=== PATIENT | male | born 1965 | race Caucasian/White ===

== ENCOUNTER 2018-01-23 09:57 | Day surgery (SDC) | payer OTHER ==
[~2018-01-23] VITALS: Ht 180.3 cm; Wt 113.5 kg
[~2018-01-23 09:57] MED LIST: ALBU90OI6 INH; ALLO100 PO; ATOR40TA PO; CYCL10 PO; Colace100 MG PO; HYDACE25S PR; HYDCOR2.5C PR; HYDMOR2 PO; IBUP600 PO; INSULANPEN; LISI20 PO; Lantus100 UNIT/1; METF500C PO; METPRE4DP PO; NAPR500 PO; Neurontin 300300 MG PO; OXYACE5T PO; Percocet 5-3251 EACH PO; RXOXYACE PO; Robaxin500 MG PO; TIOT18 INH; TOBR.3OPSO OP; TRAM50 PO; ULTRA-LIGHT RO1 EACH MC
== END 2018-01-23 11:30 | disposition home or self-care (01) ==
LOC: ORSCSDS 09:57
PROVIDERS: Internal Medicine Gastroenterology
PROC: 0DBN8ZX Excision of Sigmoid Colon, Via Natural or Artificial Opening Endoscopic, Diagnostic (ICD-10-PCS; principal; 2018-01-23 11:45)
PROC: 0DBP8ZX Excision of Rectum, Via Natural or Artificial Opening Endoscopic, Diagnostic (ICD-10-PCS; principal; 2018-01-23 11:45)
DX: R19.7 Diarrhea, unspecified (principal); D12.5 Benign neoplasm of sigmoid colon; K62.1 Rectal polyp; K63.5 Polyp of colon; D37.4 Neoplasm of uncertain behavior of colon; I10 Essential (primary) hypertension; G47.33 Obstructive sleep apnea (adult) (pediatric); E78.5 Hyperlipidemia, unspecified; E11.9 Type 2 diabetes mellitus without complications; I48.91 Unspecified atrial fibrillation; J44.9 Chronic obstructive pulmonary disease, unspecified; E66.9 Obesity, unspecified; Z68.34 Body mass index [BMI] 34.0-34.9, adult; F17.210 Nicotine dependence, cigarettes, uncomplicated; Z79.4 Long term (current) use of insulin; Z79.899 Other long term (current) drug therapy
CPT/HCPCS: 82947; 88305; J7120

== ENCOUNTER 2019-01-18 15:11 | Emergency (ER) | payer OTHER ==
[~2019-01-18] VITALS: Ht 180.3 cm; Wt 102.1 kg
[2019-01-18 15:55] LABS: BASOPHILS ABSOLUTE AUTO 0.06 K/mm3 (0.00-0.23); BASOPHILS PERCENT AUTO 1 % (0-2); EOSINOPHILS ABSOLUTE AUTO 0.08 K/mm3 (0.00-0.68); EOSINOPHILS PERCENT AUTO 1 % (0-6); Hematocrit 44.9 % (37.0-53.0); Hemoglobin 14.8 g/dL (13.5-17.5); IMMATURE GRAN ABSOLUTE AUTO 0.03 K/mm3 (0.00-0.10); IMMATURE GRAN PERCENT AUTO 0 % (0-1); LYMPHOCYTES ABSOLUTE AUTO 2.39 K/mm3 (0.84-5.20); LYMPHOCYTES PERCENT AUTO 23 % (21-46); MONOCYTES ABSOLUTE AUTO 0.81 K/mm3 (0.16-1.47); MONOCYTES PERCENT AUTO 8 % (4-13); Mean Corpuscular HGB 32.2 pg (26.0-34.0); Mean Corpuscular Volume 98 fL (80-100); Mean Platelet Volume 11.7 fL (9.1-12.4); NEUTROPHILS ABSOLUTE AUTO 7.14 K/mm3 (1.96-9.15); NEUTROPHILS PERCENT AUTO 68 % (41-73); Platelet Count 217 K/mm3 (150-400); RDW Coefficient Variation 13.4 % (11.7-14.2); RDW Standard Deviation 48.5 fL (35.1-46.3); White Blood Cell Count 10.51 K/mm3 (4.00-11.30)
[2019-01-18 16:15] LABS: Alanine Aminotransfer (ALT/SGP 59 U/L (12-78); Albumin, Blood 4.2 g/dL (3.4-5.0); Albumin/Globulin Ratio 1.3 (0.8-1.8); Alk Phos 63 U/L (50-136); Anion Gap 9 mmol/L (6-16); Aspartate Aminotrans (AST/SGOT 47 U/L (12-37); Bilirubin, Total 0.4 mg/dL (0.1-1.0); Blood Urea Nitrogen 28 mg/dL (8-24); CO2, Blood 22 mmol/L (21-32); Calcium, Blood 9.6 mg/dL (8.5-10.1); Chloride, Blood 110 mmol/L (98-108); Creatinine, Blood 1.22 mg/dL (0.60-1.20); Globulin, Blood 3.2 g/dL (2.2-4.0); Glomerular Filtration Rate >60 (60-); Glucose, Blood 104 mg/dL (70-99); Potassium, Blood 4.7 mmol/L (3.5-5.5); Sodium, Blood 141 mmol/L (136-145); Total Protein, Blood 7.4 g/dL (6.4-8.2); Troponin I <0.015 ng/mL (0.000-0.040)
[2019-01-18] MEDS ORDERED: Lopressor 25 mg25 MG PO (17:47)
== END 2019-01-18 18:06 | disposition home or self-care (01) ==
LOC: ER 15:11
PROVIDERS: Physician Assistant
DX: I48.0 Paroxysmal atrial fibrillation (principal); F41.9 Anxiety disorder, unspecified; I10 Essential (primary) hypertension; E11.9 Type 2 diabetes mellitus without complications; F17.200 Nicotine dependence, unspecified, uncomplicated; Z79.899 Other long term (current) drug therapy; Z79.4 Long term (current) use of insulin
CPT/HCPCS: 36415; 80053; 84484; 85025; 93005; 93010; 99283-25

== ENCOUNTER 2023-06-07 08:44 | Day surgery (SDC) | payer OTHER ==
[~2023-06-07] VITALS: Ht 180.3 cm; Wt 123.0 kg
[~2023-06-07 08:44] MED LIST changes: +Lopressor 25 mg25 MG PO
[2023-06-07] MEDS ORDERED: XARELTO20 MG (09:12)
[2023-06-07 10:31] VITALS: BP 114/67
== END 2023-06-07 10:46 | disposition home or self-care (01) ==
LOC: ORSCSDS 08:44
PROVIDERS: Internal Medicine Gastroenterology
PROC: 0DBM8ZX Excision of Descending Colon, Via Natural or Artificial Opening Endoscopic, Diagnostic (ICD-10-PCS; principal; 2023-06-07 10:30)
DX: Z12.11 Encounter for screening for malignant neoplasm of colon (principal); Z86.010 Personal history of colon polyps; D12.4 Benign neoplasm of descending colon; K63.5 Polyp of colon; K64.8 Other hemorrhoids; K57.30 Diverticulosis of large intestine without perforation or abscess without bleeding; I48.91 Unspecified atrial fibrillation; E11.9 Type 2 diabetes mellitus without complications; G47.33 Obstructive sleep apnea (adult) (pediatric); I10 Essential (primary) hypertension; E78.00 Pure hypercholesterolemia, unspecified; Z87.891 Personal history of nicotine dependence; Z79.01 Long term (current) use of anticoagulants; Z79.4 Long term (current) use of insulin; Z79.84 Long term (current) use of oral hypoglycemic drugs; Z79.899 Other long term (current) drug therapy
CPT/HCPCS: 82947; 88305; J2704; J7120

== ENCOUNTER 2023-08-12 18:35 | Inpatient (IN) | payer OTHER ==
[~2023-08-12] VITALS: Ht 180.3 cm; Wt 122.5 kg
[~2023-08-12 18:35] MED LIST changes: -INSULANPEN; +INSULANPEN SC; +XARELTO20 MG PO
[2023-08-12 22:29] LABS: BASOPHILS ABSOLUTE AUTO 0.05 K/mm3 (0.00-0.23); BASOPHILS PERCENT AUTO 0 % (0-2); EOSINOPHILS ABSOLUTE AUTO 0.06 K/mm3 (0.00-0.68); EOSINOPHILS PERCENT AUTO 0 % (0-6); Hematocrit 43.7 % (37.0-53.0); Hemoglobin 14.8 g/dL (13.5-17.5); Mean Corpuscular HGB 32.2 pg (26.0-34.0); Mean Corpuscular HGB Conc 33.9 g/dL (31.5-36.5); Mean Corpuscular Volume 95 fL (80-100); Mean Platelet Volume 11.9 fL (9.1-12.4); Platelet Count 169 K/mm3 (150-400); RDW Coefficient Variation 14.1 % (11.7-14.2); RDW Standard Deviation 49.1 fL (35.1-46.3); Red Blood Cell Count 4.59 M/mm3 (4.30-5.90); White Blood Cell Count 19.85 K/mm3 (4.00-11.30)
[2023-08-12 22:31] LABS: IMMATURE GRAN ABSOLUTE AUTO 0.09 K/mm3 (0.00-0.10); IMMATURE GRAN PERCENT AUTO 1 % (0-1); LYMPHOCYTES ABSOLUTE AUTO 6.91 K/mm3 (0.84-5.20); LYMPHOCYTES PERCENT AUTO 35 % (21-46); MONOCYTES ABSOLUTE AUTO 1.46 K/mm3 (0.16-1.47); MONOCYTES PERCENT AUTO 7 % (4-13); NEUTROPHILS ABSOLUTE AUTO 11.28 K/mm3 (1.96-9.15); NEUTROPHILS PERCENT AUTO 57 % (41-73)
[2023-08-12 22:55] LABS: Albumin, Blood 3.3 g/dL (3.4-5.0); Albumin/Globulin Ratio 0.7 (0.8-1.8); Bilirubin, Total 0.5 mg/dL (0.1-1.0); Bun/Creatinine Ratio 18.7 (12.0-20.0); Calcium, Blood 9.8 mg/dL (8.5-10.1); Creatinine, Blood 1.87 mg/dL (0.60-1.20); Globulin, Blood 4.5 g/dL (2.2-4.0); Potassium, Blood 4.4 mmol/L (3.5-5.5); Total Protein, Blood 7.8 g/dL (6.4-8.2)
[2023-08-13 03:01] VITALS: BP 146/82
--- NOTE | 2023-08-13 03:21 | NUR ---
NURSE NOTE CLARIFIED FLUID ORDER WITH DR LION. 2 LITER BOLUS OF NS. FIRST BOLUS STARTED NOW. THEN LR AT 125HR FLUIDS CONTINUOUSLY.
--- NOTE | 2023-08-13 04:41 | NUR ---
SHIFT SUMMARY PATIENT IS ALERT AND ORIENTED. PATIENT HAS HAD NO ACUTE EVENT THIS SHIFT. VITAL SIGNS REVIEWED. PATIENT WAS ADMITTED FOR LLE CELLULITIS THIS SHIFT. PATIENT REPORTS PAIN IN LLE. PATIENT HAS FLUIDS INFUSING ORDERED. PATIENT IS IND THIS SHIFT. PATIENT HAS REPORTED NO NAUSEA, SOB OR VOMITTING THIS SHIFT. BED IN LOCKED AND LOWEST POSITION. CALL LIGHT IN SHIFT.
[2023-08-13 07:07] LABS: Bun/Creatinine Ratio 12.4 (12.0-20.0); Calcium, Blood 8.5 mg/dL (8.5-10.1); Creatinine, Blood 2.74 mg/dL (0.60-1.20)
[2023-08-13 07:27] VITALS: BP 137/81
[2023-08-13 08:37] LABS: Hematocrit 39.2 % (37.0-53.0); Mean Corpuscular HGB 31.8 pg (26.0-34.0); Mean Corpuscular HGB Conc 33.2 g/dL (31.5-36.5); Mean Corpuscular Volume 96 fL (80-100); Mean Platelet Volume 12.2 fL (9.1-12.4); Platelet Count 145 K/mm3 (150-400); RDW Standard Deviation 49.1 fL (35.1-46.3); Red Blood Cell Count 4.09 M/mm3 (4.30-5.90); White Blood Cell Count 17.92 K/mm3 (4.00-11.30)
[2023-08-13 09:44] LABS: BAND PERCENT MAN 1 % (0-8); BASOPHILS PERCENT MAN 0 % (0-2); EOSINOPHILS ABSOLUTE MAN 0.17 K/mm3 (0.00-0.68); EOSINOPHILS PERCENT MAN 1 % (0-6); LYMPHOCYTES ABSOLUTE MAN 5.55 K/mm3 (0.84-5.20); LYMPHOCYTES PERCENT MAN 31 % (21-46); MONOCYTES ABSOLUTE MAN 0.35 K/mm3 (0.16-1.47); MONOCYTES PERCENT MAN 2 % (4-13); NEUTROPHILS ABSOLUTE MAN 11.82 K/mm3 (1.96-9.15); SEG NEUTROPHILS PERCENT MAN 65 % (41-73); TOTAL CELLS COUNTED 100
[2023-08-13 16:42] VITALS: BP 144/88
--- NOTE | 2023-08-13 18:09 | NUR ---
SHIFT SUMMARY PT AxOx4. PLEASANT AND COOPERATIVE WITH CARE. PT REPORTED PAIN IN RLE/HIP FROM CHRONIC SCIATICA. MEDICATED PER EMAR x2 WITH REPORTED RELIEF. PT HAD NEPHROLOGY REFERRAL TODAY. FLUIDS CHANGED TO SODIUM BICARB IN DEXTROSE 5%. KIDNEY ULTRASOUND ORDERED. PER IMAGING, EXPECTED TO BE COMPLETED TOMORROW. PT HAD SHOWER TODAY. VOIDED INDEPENDENTLY, DOCUMENTED OUTPUT ACCORDINGLY. PT DECLINED PAIN TO LLE CELLULITIS, AND REPORTED THE COLOR TO BE "LESS BRIGHT RED" TODAY. PT IS CURRENTLY RESTING IN BED WITH CALL LIGHT IN REACH. DENIES ANY NEEDS AT THIS TIME.
[2023-08-13 20:28] VITALS: BP 120/71
[2023-08-14 04:27] VITALS: BP 142/79
--- NOTE | 2023-08-14 05:01 | NUR ---
SHIFT SUMMARY PATIENT IS ALERT AND ORIENTED. PATIENT HAS HAD NO ACUTE EVENTS THIS SHIFT. VITAL SIGNS REVIEWED. PATIENT HAS BEEN IND THIS SHIFT. PATIENT IS INFORMED OF STRICT I/O FOR KIDNEY FUNCTION. PATIENT HAS COMPLAINED OF PAIN, AND MEDICATED PER EMAR. PATIENT HAS NOT COMPLAINED OF SOB, NAUSEA, OR VOMITTING THIS SHIFT. BED IN LOCKED AND LOWEST POSITION. CALL LIGHT IN PLACE. FLUIDS INFUSING ORDERED.
[2023-08-14 05:09] LABS: Hematocrit 35.5 % (37.0-53.0); Mean Corpuscular HGB Conc 33.8 g/dL (31.5-36.5); Mean Corpuscular Volume 95 fL (80-100); Platelet Count 159 K/mm3 (150-400); RDW Coefficient Variation 13.9 % (11.7-14.2); RDW Standard Deviation 48.1 fL (35.1-46.3); Red Blood Cell Count 3.75 M/mm3 (4.30-5.90); White Blood Cell Count 14.43 K/mm3 (4.00-11.30)
[2023-08-14 05:36] LABS: Albumin, Blood 2.7 g/dL (3.4-5.0); Anion Gap 3 mmol/L (6-16); Blood Urea Nitrogen 22 mg/dL (8-24); Bun/Creatinine Ratio 19.5 (12.0-20.0); CO2, Blood 30 mmol/L (21-32); Calcium, Blood 8.9 mg/dL (8.5-10.1); Chloride, Blood 108 mmol/L (98-108); Creatinine, Blood 1.13 mg/dL (0.60-1.20); Glomerular Filtration Rate 75 (60-); Glucose, Blood 232 mg/dL (70-99); Magnesium, Blood 1.9 mg/dL (1.6-2.4); Phosphorus, Blood 2.7 mg/dL (2.5-4.9); Sodium, Blood 141 mmol/L (136-145)
[2023-08-14 05:49] LABS: BAND PERCENT MAN 14 % (0-8); BASOPHILS PERCENT MAN 0 % (0-2); EOSINOPHILS ABSOLUTE MAN 0.43 K/mm3 (0.00-0.68); EOSINOPHILS PERCENT MAN 3 % (0-6); LYMPHOCYTES % ATYPICAL MANUAL 1 % (0-0); LYMPHOCYTES ABSOLUTE MAN 4.18 K/mm3 (0.84-5.20); LYMPHOCYTES PERCENT MAN 28 % (21-46); MONOCYTES ABSOLUTE MAN 1.44 K/mm3 (0.16-1.47); MONOCYTES PERCENT MAN 10 % (4-13); MYELOCYTE ABSOLUTE MAN 0.43 K/mm3 (0.00-0.00); MYELOCYTE PERCENT MAN 3 % (0-0); NEUTROPHILS ABSOLUTE MAN 7.93 K/mm3 (1.96-9.15); SEG NEUTROPHILS PERCENT MAN 41 % (41-73); TOTAL CELLS COUNTED 100
[2023-08-14 07:28] VITALS: BP 145/86
[2023-08-14 15:32] VITALS: BP 124/66
--- NOTE | 2023-08-14 18:11 | NUR ---
SHIFT SUMMARY A7oX4, COOPERATIVE WITH CARE, PLEASANT. DENIED ANY CP/PRESSURE, HEADACHE, DIZZINESS OR SOB. COMPLAINED OF 10/10 PAIN TO R SCIATIC AND LLE CELLULITIS, TREATED WITH FENTANYL Q4, TYLENOL, AND ULTRAM PER EMAR. RENAL US COMPLETED TODAY - UNREMARKABLE. NS RUNNING AT 75 CURRENTLY. 24 HR URINE STARTED AT 0715 THIS AM. NO ACUTE EVENTS THIS SHIFT. PATIENT'S FAMILY CURRENTLY AT BEDSIDE.
[2023-08-14 19:22] VITALS: BP 130/78
[2023-08-15 02:23] VITALS: BP 142/86
--- NOTE | 2023-08-15 04:42 | NUR ---
SHIFT SUMMARY: PT IS ADMITTED FOR SEPSIS AND IS A FULL CODE. IS ALERT AND ABLE TO MAKE NEEDS KNOWN. IS UP AD-AARON TO 1P DEPENDING ON HOW HE FEELS. HAVE BEEN GIVEN PRN PAIN X2 THIS SHIFT. IV TO RIGHT AC IS PATENT AND RUNNING NS AT 75.
[2023-08-15 05:07] LABS: Hematocrit 36.7 % (37.0-53.0); Hemoglobin 12.2 g/dL (13.5-17.5); Mean Corpuscular HGB 31.7 pg (26.0-34.0); Mean Corpuscular HGB Conc 33.2 g/dL (31.5-36.5); Mean Corpuscular Volume 95 fL (80-100); Mean Platelet Volume 11.6 fL (9.1-12.4); Platelet Count 180 K/mm3 (150-400); RDW Coefficient Variation 13.9 % (11.7-14.2); RDW Standard Deviation 48.3 fL (35.1-46.3); Red Blood Cell Count 3.85 M/mm3 (4.30-5.90); White Blood Cell Count 16.44 K/mm3 (4.00-11.30)
[2023-08-15 05:34] LABS: Albumin, Blood 2.7 g/dL (3.4-5.0); Anion Gap 5 mmol/L (6-16); Blood Urea Nitrogen 18 mg/dL (8-24); Bun/Creatinine Ratio 17.5 (12.0-20.0); CO2, Blood 28 mmol/L (21-32); Calcium, Blood 9.3 mg/dL (8.5-10.1); Chloride, Blood 106 mmol/L (98-108); Creatinine, Blood 1.03 mg/dL (0.60-1.20); Glomerular Filtration Rate 84 (60-); Glucose, Blood 158 mg/dL (70-99); Magnesium, Blood 1.7 mg/dL (1.6-2.4); Sodium, Blood 139 mmol/L (136-145)
[2023-08-15 06:01] LABS: BASOPHILS PERCENT MAN 0 % (0-2); EOSINOPHILS PERCENT MAN 0 % (0-6); LYMPHOCYTES ABSOLUTE MAN 8.38 K/mm3 (0.84-5.20); LYMPHOCYTES PERCENT MAN 51 % (21-46); MONOCYTES ABSOLUTE MAN 0.82 K/mm3 (0.16-1.47); MONOCYTES PERCENT MAN 5 % (4-13); NEUTROPHILS ABSOLUTE MAN 7.23 K/mm3 (1.96-9.15); SEG NEUTROPHILS PERCENT MAN 44 % (41-73); TOTAL CELLS COUNTED 100
[2023-08-15 07:06] VITALS: BP 145/84
[2023-08-15 08:22] LABS: Protein, Urine Quantitative 42.3 mg/dL (0.0-11.9)
[2023-08-15 15:08] VITALS: BP 144/80
--- NOTE | 2023-08-15 17:09 | NUR ---
PATIENT A/OX4, INDEPENDENT AT BASELINE BUT UNABLE TO GET OOB THIS SHIFT DUE TO PAIN. REPORTS "SCIATICA." PAIN MEDICATION CHANGED TO IV DILAUDID AND FLEXERIL ADDED WITH SOME RELIEF. CONTINUES ON FLUIDS AND ABX. PATIENT PLEASANT AND COOPERATIVE WITH CARE AND ABLE TO MAKE NEEDS KNOWN. AT BEDSIDE THIS EVENING.
[2023-08-15 20:09] VITALS: BP 154/85
[2023-08-16 02:49] VITALS: BP 136/87
--- NOTE | 2023-08-16 05:34 | NUR ---
SUMMARY: PT A/OX4, IS INDEPENDENT IN ROOM AND CALLS APPROPRIATELY TO SPECIFY NEEDS. IV ABX RECIEVED T/O NOCTE FOR LLE CELLULITIS. LEG CONT'S TO BE RED, FIRM AND SWOLLEN FROM KNEE DOWN AND INTACT BLISTERS ARE NOTED TO POSTERIOR CALF. EDEMA AND REDNESS APPEAR TO BE RECEEDING FROM DEMARCATED REGION AND HE DENIED PAIN TO LLE T/O NOCTE. HE'S CONT'D TO EXPERIENCE SIGNIFICANT SCIATICA AND BACK PAIN THOUGH. PRN FLEXERIL AND IV DILAUDID PROVIDED REGULARLY PER EMAR AND KPAD REMAINS IN PLACE FOR BETTER RELIEF. HE'D PREVIOUSLY REPORTED PAIN TO SUSTAIN 10/10 BUT EVENTUALLY SLEPT WELL W/PAIN CONTROL IMPROVED TO 3/10. NO ACUTE CHANGES, VSS/AFEBRILE. WCTM AND REPORT TO DAY RN.
[2023-08-16 06:52] LABS: Albumin, Blood 2.7 g/dL (3.4-5.0); Anion Gap 8 mmol/L (6-16); Blood Urea Nitrogen 16 mg/dL (8-24); Bun/Creatinine Ratio 15.5 (12.0-20.0); CO2, Blood 25 mmol/L (21-32); Calcium, Blood 9.6 mg/dL (8.5-10.1); Chloride, Blood 106 mmol/L (98-108); Creatinine, Blood 1.03 mg/dL (0.60-1.20); Glomerular Filtration Rate 84 (60-); Glucose, Blood 149 mg/dL (70-99); Magnesium, Blood 1.8 mg/dL (1.6-2.4); Phosphorus, Blood 3.7 mg/dL (2.5-4.9); Potassium, Blood 4.2 mmol/L (3.5-5.5); Sodium, Blood 139 mmol/L (136-145)
[2023-08-16 07:14] LABS: Hemoglobin 12.8 g/dL (13.5-17.5)
[2023-08-16 07:58] VITALS: BP 138/89
[2023-08-16 08:44] LABS: Hematocrit 38.1 % (37.0-53.0); Hemoglobin 12.9 g/dL (13.5-17.5); Mean Corpuscular HGB 32.2 pg (26.0-34.0); Mean Corpuscular HGB Conc 33.9 g/dL (31.5-36.5); Mean Corpuscular Volume 95 fL (80-100); Mean Platelet Volume 11.8 fL (9.1-12.4); Platelet Count 209 K/mm3 (150-400); RDW Coefficient Variation 13.8 % (11.7-14.2); RDW Standard Deviation 47.9 fL (35.1-46.3); Red Blood Cell Count 4.01 M/mm3 (4.30-5.90); White Blood Cell Count 18.42 K/mm3 (4.00-11.30)
[2023-08-16 10:03] LABS: BAND PERCENT MAN 3 % (0-8); BASOPHILS PERCENT MAN 0 % (0-2); EOSINOPHILS PERCENT MAN 0 % (0-6); LYMPHOCYTES % ATYPICAL MANUAL 1 % (0-0); LYMPHOCYTES ABSOLUTE MAN 6.99 K/mm3 (0.84-5.20); LYMPHOCYTES PERCENT MAN 37 % (21-46); METAMYELOCYTE ABSOLUTE MAN 0.18 K/mm3 (0.00-0.00); METAMYELOCYTE PERCENT MAN 1 % (0-0); MONOCYTES ABSOLUTE MAN 0.55 K/mm3 (0.16-1.47); MONOCYTES PERCENT MAN 3 % (4-13); MYELOCYTE ABSOLUTE MAN 0.18 K/mm3 (0.00-0.00); MYELOCYTE PERCENT MAN 1 % (0-0); NEUTROPHILS ABSOLUTE MAN 10.49 K/mm3 (1.96-9.15); SEG NEUTROPHILS PERCENT MAN 54 % (41-73); TOTAL CELLS COUNTED 100
[2023-08-16 16:15] VITALS: BP 143/90
--- NOTE | 2023-08-16 17:30 | NUR ---
PATIENT A/OX4, PLEASANT AND COOPERATIVE WITH CARE THIS SHIFT. CONTINUES TO HAVE SEVERE BACK PAIN MAKING HIM UNABLE TO GET OOB. WHEN PHYSICAL THERAPY WAS SUGGESTED, PATIENT WAS ADAMENT THAT HE DID NOT WANT THAT. MEDICATING WITH DILAUDID, FLEXERIL AND TYLENOL. REDNESS TO L FOOT RECEEDING FROM ORIGINAL TRACING. CT OF L FOOT DONE TODAY. 20IV TO RAC WNL AND SL BETWEEN ABX. NO ACUTE CHANGES THIS SHIFT.
[2023-08-16 20:19] VITALS: BP 138/84
[2023-08-17 04:44] VITALS: BP 134/80
[2023-08-17 05:26] LABS: Hematocrit 37.8 % (37.0-53.0); Hemoglobin 12.8 g/dL (13.5-17.5); Mean Corpuscular HGB 32.4 pg (26.0-34.0); Mean Corpuscular HGB Conc 33.9 g/dL (31.5-36.5); Mean Corpuscular Volume 96 fL (80-100); Mean Platelet Volume 11.3 fL (9.1-12.4); Platelet Count 237 K/mm3 (150-400); RDW Coefficient Variation 13.7 % (11.7-14.2); RDW Standard Deviation 47.8 fL (35.1-46.3); Red Blood Cell Count 3.95 M/mm3 (4.30-5.90); White Blood Cell Count 18.23 K/mm3 (4.00-11.30)
--- NOTE | 2023-08-17 05:48 | NUR ---
SHIFT SUMMARY PT LAYING IN BED DURING BEDSIDE ROUNDS- AT BEDSIDE-PT REQUESTED FLEXERIL WITH HS MEDS- MEDICATED PT X 2 FOR LEFT BACK AND LEG PAIN- PT REPORTED BEING ABLE TO GET MORE SLEEP WITH THE PAIN RELIEF- BED LOW POSITION, CALL LIGHT WITHIN REACH
[2023-08-17 06:04] LABS: Albumin, Blood 2.6 g/dL (3.4-5.0); Anion Gap 9 mmol/L (6-16); Blood Urea Nitrogen 21 mg/dL (8-24); Bun/Creatinine Ratio 19.8 (12.0-20.0); CO2, Blood 26 mmol/L (21-32); Calcium, Blood 9.5 mg/dL (8.5-10.1); Chloride, Blood 102 mmol/L (98-108); Creatinine, Blood 1.06 mg/dL (0.60-1.20); Glomerular Filtration Rate 81 (60-); Glucose, Blood 167 mg/dL (70-99); Phosphorus, Blood 3.4 mg/dL (2.5-4.9); Potassium, Blood 4.3 mmol/L (3.5-5.5); Sodium, Blood 137 mmol/L (136-145)
[2023-08-17 06:34] LABS: BASOPHILS PERCENT MAN 0 % (0-2); EOSINOPHILS PERCENT MAN 0 % (0-6); LYMPHOCYTES ABSOLUTE MAN 7.29 K/mm3 (0.84-5.20); LYMPHOCYTES PERCENT MAN 40 % (21-46); MONOCYTES ABSOLUTE MAN 1.64 K/mm3 (0.16-1.47); MONOCYTES PERCENT MAN 9 % (4-13); MYELOCYTE ABSOLUTE MAN 0.18 K/mm3 (0.00-0.00); MYELOCYTE PERCENT MAN 1 % (0-0); NEUTROPHILS ABSOLUTE MAN 9.11 K/mm3 (1.96-9.15); SEG NEUTROPHILS PERCENT MAN 50 % (41-73); TOTAL CELLS COUNTED 100
[2023-08-17 07:04] VITALS: BP 148/87
[2023-08-17 15:19] VITALS: BP 139/85
--- NOTE | 2023-08-17 17:21 | NUR ---
SHIFT SUMMARY PT AOX4, UNABLE TO GET OUT OF BED THIS SHIFT. ATTEMPTED BUT THE PT WAS IN TOO MUCH PAIN EVEN AFTER BEING MEDICATED. MEDICATED FOR PAIN PER THE EMAR. ICE AND HEATING PAD PROVIDED TO THE PT. PROVIDER APPROVED THE PT TO USE A TENS UNIT AND THE PT'S FAMILY IS GOING TO BRING ONE IN. APPETITE LOW BUT PT ATTEMPTING TO EAT. PT'S AT THE BS ALL SHIFT. CALL LIGHT WITHIN REACH, BED IN THE LOWEST POSITION. WILL REPORT TO ONCOMING NURSE.
--- NOTE | 2023-08-17 19:00 | NUR ---
RECEIVED REPORT FROM SHARI RN. WILL PROVIDE CARE T/O SHIFT. CALL LT IN REACH.
--- NOTE | 2023-08-17 19:32 | NUR ---
MEDICATED WITH 1 MG IV DILAUDID FOR 9/10 BACK PAIN. PT REPORTS THE PAIN MED BRINGS HIS PAIN LEVEL DOWN TO A 2/3. NO OTHER NEEDS. CALL LT IN REACH.
[2023-08-17 21:42] VITALS: BP 142/88
--- NOTE | 2023-08-17 22:03 | NUR ---
PT RESTING COMFORTABLY, LYING ON BACK. SNORING LIGHTLY. RESP EVEN AND UNLABORED. IVF INFUSING. CALL LT IN REACH.
--- NOTE | 2023-08-18 00:22 | NUR ---
PT STATES PAIN LEVEL IS COMING DOWN. CALL LT IN REACH.
--- NOTE | 2023-08-18 02:08 | NUR ---
PT RESTING QUIETLY. ABX INFUSING. CALL LT IN REACH.
--- NOTE | 2023-08-18 04:17 | NUR ---
MEDICATED PT FOR 8/10 BACK PAIN WITH 1 MG IV DILAUDID. PT RESTING. IVF INFUSING. NO OTHER NEEDS. CALL LT IN REACH.
--- NOTE | 2023-08-18 04:37 | NUR ---
PT RESTING, SNORING AFTER PAIN MEDICATION GIVEN. CALL LT IN REACH.
--- NOTE | 2023-08-18 04:39 | NUR ---
SHIFT SUMMARY: PT CONTINUES TO HAVE PAIN, STIFFNESS, IN BACK. MEDICATED PT FOR BACK PAIN WITH 1 MG IV DILAUDID X 3. FLEXERIL GIVEN X 1. USES URINAL AT BEDSIDE. ON RA. SCHEDULED ABX'S GIVEN. NO ACUTE CHANGES. WILL CONTINUE TO PROVIDE CARE UNTIL SHIFT REPORT.
[2023-08-18 04:42] VITALS: BP 138/89
[2023-08-18 04:50] LABS: Hematocrit 39.7 % (37.0-53.0); Hemoglobin 13.2 g/dL (13.5-17.5); Mean Corpuscular HGB 31.4 pg (26.0-34.0); Mean Corpuscular HGB Conc 33.2 g/dL (31.5-36.5); Mean Corpuscular Volume 94 fL (80-100); Platelet Count 259 K/mm3 (150-400); RDW Coefficient Variation 13.7 % (11.7-14.2); RDW Standard Deviation 47.7 fL (35.1-46.3); Red Blood Cell Count 4.21 M/mm3 (4.30-5.90); White Blood Cell Count 18.94 K/mm3 (4.00-11.30)
[2023-08-18 05:20] LABS: Albumin, Blood 2.5 g/dL (3.4-5.0); Anion Gap 8 mmol/L (6-16); Blood Urea Nitrogen 21 mg/dL (8-24); Bun/Creatinine Ratio 19.1 (12.0-20.0); CO2, Blood 25 mmol/L (21-32); Calcium, Blood 9.8 mg/dL (8.5-10.1); Chloride, Blood 104 mmol/L (98-108); Glomerular Filtration Rate 78 (60-); Glucose, Blood 147 mg/dL (70-99); Magnesium, Blood 1.8 mg/dL (1.6-2.4); Phosphorus, Blood 3.5 mg/dL (2.5-4.9); Potassium, Blood 4.5 mmol/L (3.5-5.5); Sodium, Blood 137 mmol/L (136-145)
[2023-08-18 06:41] LABS: BASOPHILS PERCENT MAN 0 % (0-2); EOSINOPHILS PERCENT MAN 0 % (0-6); LYMPHOCYTES ABSOLUTE MAN 7.38 K/mm3 (0.84-5.20); LYMPHOCYTES PERCENT MAN 39 % (21-46); MONOCYTES ABSOLUTE MAN 0.94 K/mm3 (0.16-1.47); MONOCYTES PERCENT MAN 5 % (4-13); MYELOCYTE ABSOLUTE MAN 0.37 K/mm3 (0.00-0.00); MYELOCYTE PERCENT MAN 2 % (0-0); NEUTROPHILS ABSOLUTE MAN 10.22 K/mm3 (1.96-9.15); SEG NEUTROPHILS PERCENT MAN 54 % (41-73); TOTAL CELLS COUNTED 100
[2023-08-18 07:33] VITALS: BP 147/90
[2023-08-18 15:31] VITALS: BP 166/97
--- NOTE | 2023-08-18 18:26 | NUR ---
SHIFT SUMMARY A&O X 4, VSS. IS PLEASANT & COOPERATIVE WITH ALL CARE. USES URINAL INDEPENDENTLY FROM BED. WENT FOR BACK/SPINAL MRI HIS AFTERNOON. REPORT ON CHART. MEDICATED FOR C/O BACK PAIN PER EMAR WITH GOOD RELIEF STATED BY PT. APPETITE GOOD. AT BEDSIDE THROUGHOUT SHIFT. BED IN LOW POSITION, CALL LIGHT WITHIN REACH.
[2023-08-18 19:58] VITALS: BP 154/86
--- NOTE | 2023-08-19 04:51 | NUR ---
NO REAL CHANGE IN PT CONDTION RELATIVLY QUIET NIGHT WITH C/O PAIN TO RIGHT SIATIC NERVE, PT WAS MEDICATED EVERY 4 HOURS AND OFFERED COLD COMPRESS BUT PT DENIED. WILL CONT TO MONITOR
[2023-08-19 05:08] VITALS: BP 138/94
[2023-08-19 07:06] VITALS: BP 146/88
[2023-08-19 09:24] LABS: Hematocrit 40.2 % (37.0-53.0); Hemoglobin 13.3 g/dL (13.5-17.5); Mean Corpuscular HGB 31.7 pg (26.0-34.0); Mean Corpuscular HGB Conc 33.1 g/dL (31.5-36.5); Mean Corpuscular Volume 96 fL (80-100); Mean Platelet Volume 10.9 fL (9.1-12.4); Platelet Count 277 K/mm3 (150-400); RDW Coefficient Variation 13.8 % (11.7-14.2); RDW Standard Deviation 49.1 fL (35.1-46.3); Red Blood Cell Count 4.19 M/mm3 (4.30-5.90); White Blood Cell Count 18.89 K/mm3 (4.00-11.30)
[2023-08-19 09:52] LABS: BAND PERCENT MAN 5 % (0-8); BASOPHILS PERCENT MAN 0 % (0-2); EOSINOPHILS PERCENT MAN 0 % (0-6); LYMPHOCYTES % ATYPICAL MANUAL 1 % (0-0); LYMPHOCYTES ABSOLUTE MAN 9.06 K/mm3 (0.84-5.20); LYMPHOCYTES PERCENT MAN 47 % (21-46); MONOCYTES ABSOLUTE MAN 0.94 K/mm3 (0.16-1.47); MONOCYTES PERCENT MAN 5 % (4-13); MYELOCYTE ABSOLUTE MAN 0.18 K/mm3 (0.00-0.00); MYELOCYTE PERCENT MAN 1 % (0-0); NEUTROPHILS ABSOLUTE MAN 8.68 K/mm3 (1.96-9.15); SEG NEUTROPHILS PERCENT MAN 41 % (41-73); TOTAL CELLS COUNTED 100
[2023-08-19 09:58] LABS: Albumin, Blood 2.4 g/dL (3.4-5.0); Anion Gap 7 mmol/L (6-16); Blood Urea Nitrogen 22 mg/dL (8-24); Bun/Creatinine Ratio 21.6 (12.0-20.0); CO2, Blood 27 mmol/L (21-32); Calcium, Blood 9.5 mg/dL (8.5-10.1); Chloride, Blood 105 mmol/L (98-108); Creatinine, Blood 1.02 mg/dL (0.60-1.20); Glomerular Filtration Rate 85 (60-); Glucose, Blood 155 mg/dL (70-99); Magnesium, Blood 1.8 mg/dL (1.6-2.4); Phosphorus, Blood 3.4 mg/dL (2.5-4.9); Potassium, Blood 4.3 mmol/L (3.5-5.5); Sodium, Blood 139 mmol/L (136-145)
--- NOTE | 2023-08-19 18:21 | NUR ---
SHIFT SUMMARY A&O X 4, VSS. MEDICATED FOR C/O BACK PAIN PER EMAR WITH GOOD RELIEF STATED BY PT. CHANGED IV PAIN MEDS TO PO TO PREPARE PT FOR POSSIBLE DC TOMORROW. USES URINAL INDEPENDENTLY FROM BED. IS ABLE TO REPOSITION SELF FOR COMFORT. APPETITE IS MARGINAL. BED IN LOW POSITION, CALL LIGHT WITHIN REACH.
[2023-08-19 19:46] VITALS: BP 188/101
--- NOTE | 2023-08-19 21:17 | NUR ---
NOTE BILLING CUSTOMER SERVICE REPRESENTATIVE NOTIFIED ME OF BP 188/101 WHICH IS ABOVE THIS PATIENT'S BASELINE. PT BELIEVES IT IS ELEVATED D/T PAIN. I CALLED THE HOSPITALIST (DR. MISHRA) AND RELAYED THE INCREASED B/P TO HIM. MY ORDERS WERE TO ADMINISTER HIS DILAUDED EARLY AND REASSESS.
[2023-08-20 04:37] VITALS: BP 166/95
--- NOTE | 2023-08-20 04:53 | NUR ---
SHIFT SUMMARY *IMMANUEL* IS ALERT AND FULLY ORIENTED AT THE TIME OF ASSESSMENT. HE IS PLEASANT AND COOPERATIVE. PT C/O SEVERE PAIN TO RIGHT SCIATIC, MEDICATED PER EMAR WITH A THERAPEUTIC DROP IN PAIN RATING. FIRST VITAL SET OF THE SHIFT PT HAD BP OF 188/101, PT DENIES C/P AND SOB, PT BELIEVES B/P WAS ELEVATED D/T PAIN. I CALLED HOSPITALIST (DR. MISHRA) AND NOTIFIED HIM, MY ORDERS WERE TO ADMINISTER HIS SCHEDULED DILAUDED EARLY AND REASSESS. SUBSEQUENT B/P WAS 161/83, I ALSO REPORTED THIS TO DR. MISHRA, NO ORDERS RECIEVED. PT'S GOAL TONIGHT WAS TO STAY ON TOP OF PAIN MANAGEMENT SO THAT HE COULD START HIS DAY WITH LOW ENOUGH PAIN TO GET SOME OF HIS MORNING ACTIVITIES OUT OF THE WAY COMFORTABLY (TOILETING ETC) NO ACUTE EVENTS TONIGHT, PT RESTING IN BED IN A LOW POSITION WITH CALL LIGHT IN REACH.
[2023-08-20 05:42] LABS: Hemoglobin 12.7 g/dL (13.5-17.5); Mean Corpuscular HGB 31.4 pg (26.0-34.0); Mean Corpuscular HGB Conc 32.6 g/dL (31.5-36.5); Mean Corpuscular Volume 96 fL (80-100); Mean Platelet Volume 10.9 fL (9.1-12.4); Platelet Count 299 K/mm3 (150-400); RDW Coefficient Variation 13.6 % (11.7-14.2); RDW Standard Deviation 48.3 fL (35.1-46.3); Red Blood Cell Count 4.05 M/mm3 (4.30-5.90); White Blood Cell Count 16.75 K/mm3 (4.00-11.30)
[2023-08-20 06:26] LABS: Albumin, Blood 2.5 g/dL (3.4-5.0); Anion Gap 6 mmol/L (6-16); Blood Urea Nitrogen 25 mg/dL (8-24); Bun/Creatinine Ratio 23.4 (12.0-20.0); CO2, Blood 28 mmol/L (21-32); Calcium, Blood 9.6 mg/dL (8.5-10.1); Chloride, Blood 105 mmol/L (98-108); Creatinine, Blood 1.07 mg/dL (0.60-1.20); Glomerular Filtration Rate 80 (60-); Glucose, Blood 162 mg/dL (70-99); Magnesium, Blood 1.8 mg/dL (1.6-2.4); Phosphorus, Blood 3.6 mg/dL (2.5-4.9); Potassium, Blood 4.4 mmol/L (3.5-5.5); Sodium, Blood 139 mmol/L (136-145)
[2023-08-20 06:27] LABS: BAND PERCENT MAN 1 % (0-8); BASOPHILS PERCENT MAN 0 % (0-2); EOSINOPHILS PERCENT MAN 0 % (0-6); LYMPHOCYTES ABSOLUTE MAN 7.03 K/mm3 (0.84-5.20); LYMPHOCYTES PERCENT MAN 42 % (21-46); METAMYELOCYTE ABSOLUTE MAN 0.16 K/mm3 (0.00-0.00); METAMYELOCYTE PERCENT MAN 1 % (0-0); MONOCYTES ABSOLUTE MAN 2.17 K/mm3 (0.16-1.47); MONOCYTES PERCENT MAN 13 % (4-13); NEUTROPHILS ABSOLUTE MAN 7.37 K/mm3 (1.96-9.15); SEG NEUTROPHILS PERCENT MAN 43 % (41-73); TOTAL CELLS COUNTED 100
[2023-08-20 07:30] VITALS: BP 158/87
--- NOTE | 2023-08-20 11:00 | NUR ---
File Keeper called back into room, states pt seeing kitten in vent. Pt states still sees it. Dr. Gaffney at bedside. Dr. White made aware. Will continue to monitor.
[2023-08-20] MEDS ORDERED: ACET325 PO (12:34)
[2023-08-20] MEDS ORDERED: Cyclobenzaprine5 MG PO (12:34)
[2023-08-20] MEDS ORDERED: LEVFLO500 PO (12:35)
[2023-08-20] MEDS ORDERED: HYDMOR2 PO (12:35)
[2023-08-20] MEDS ORDERED: VISBIOME 112.51 EACH PO (12:35)
[2023-08-20] MEDS ORDERED: SENN187 PO (15:32)
--- NOTE | 2023-08-20 15:43 | NUR ---
SHIFT/DISCHARGE SUMMARY Pt with one episode start of shift seeing a cat in the vent x1. Sx subsided, no further episodes. Remains A&Ox3. Sciatica pain managed with po meds. cement rubberHENRIQUE Croft reviewed discharge instructions with and pt. Pt to [facility].
== END 2023-08-20 15:56 | disposition home or self-care (01) | DRG 872 ==
LOC: ER 18:35 → MEDS 23:47 → ENPENDDIS 08-20 13:43 → MEDS 08-20 15:56
PROVIDERS: Emergency Medicine; Family Medicine; Internal Medicine Nephrology; Student in an Organized Health Care Education/Training Program; ADMIT Internal Medicine
PROC: 3E03329 Introduction of Other Anti-infective into Peripheral Vein, Percutaneous Approach (ICD-10-PCS; principal; 2023-08-12)
PROC: 3E0234Z Introduction of Serum, Toxoid and Vaccine into Muscle, Percutaneous Approach (ICD-10-PCS; 2023-08-12)
DX: A41.9 Sepsis, unspecified organism (principal); L03.116 Cellulitis of left lower limb; N17.9 Acute kidney failure, unspecified; E87.20 Acidosis, unspecified; N18.2 Chronic kidney disease, stage 2 (mild); E11.22 Type 2 diabetes mellitus with diabetic chronic kidney disease; D63.1 Anemia in chronic kidney disease; I48.0 Paroxysmal atrial fibrillation; M48.07 Spinal stenosis, lumbosacral region; M48.061 Spinal stenosis, lumbar region without neurogenic claudication; E86.9 Volume depletion, unspecified; I12.9 Hypertensive chronic kidney disease with stage 1 through stage 4 chronic kidney disease, or unspecified chronic kidney disease; R80.9 Proteinuria, unspecified; E87.5 Hyperkalemia; E88.09 Other disorders of plasma-protein metabolism, not elsewhere classified; R44.1 Visual hallucinations; Z79.82 Long term (current) use of aspirin; Z79.01 Long term (current) use of anticoagulants; Z79.4 Long term (current) use of insulin; Z23 Encounter for immunization
CPT/HCPCS: 36415; 72148; 73701; 76770; 80048; 80053; 80069; 82947; 83605; 83735; 84156; 85014; 85018; 85025; 87040; 90471; 90715; 93971; 96361; 96365; 96375; 96376; 99285-25; A9270; G0378; J0690; J1170; J1815; J1885; J2405; J3010; J7030; J7070; J7120; Q9967

== ENCOUNTER → 2023-09-18 | Outpatient (CLI) | payer OTHER ==
[~2023-09-18] MED LIST changes: +ACET325 PO; +Cyclobenzaprine5 MG PO; +LEVFLO500 PO; +SENN187 PO; +VISBIOME 112.51 EACH PO
[2023-09-18 16:16] LABS: Albumin, Blood 3.3 g/dL (3.4-5.0); Anion Gap 3 mmol/L (6-16); Blood Urea Nitrogen 13 mg/dL (8-24); Bun/Creatinine Ratio 11.9 (12.0-20.0); CO2, Blood 28 mmol/L (21-32); Calcium, Blood 9.4 mg/dL (8.5-10.1); Chloride, Blood 107 mmol/L (98-108); Creatinine, Blood 1.09 mg/dL (0.60-1.20); Glomerular Filtration Rate 78 (60-); Glucose, Blood 271 mg/dL (70-99); Phosphorus, Blood 2.9 mg/dL (2.5-4.9); Potassium, Blood 4.5 mmol/L (3.5-5.5); Sodium, Blood 138 mmol/L (136-145)
== END | disposition home or self-care (01) ==
LOC: LAB 13:00 → LAB SHORT 13:00
PROVIDERS: Family Medicine
DX: R60.0 Localized edema (principal)
CPT/HCPCS: 80069

== ENCOUNTER 2024-11-21 13:22 | Inpatient (IN) | payer OTHER ==
[~2024-11-21] VITALS: Ht 182.9 cm; Wt 125.0 kg
[~2024-11-21 13:22] MED LIST changes: -ALLO100 PO; +ALLO300 PO
[2024-11-21 14:16] LABS: Hematocrit 40.9 % (37.0-53.0); Hemoglobin 13.9 g/dL (13.5-17.5); Mean Corpuscular Volume 94 fL (80-100); Mean Platelet Volume 11.5 fL (9.1-12.4); Platelet Count 169 K/mm3 (150-400); RDW Coefficient Variation 14.6 % (11.7-14.2); RDW Standard Deviation 50.6 fL (35.1-46.3); Red Blood Cell Count 4.35 M/mm3 (4.30-5.90); White Blood Cell Count 23.22 K/mm3 (4.00-11.30)
[2024-11-21] MEDS ORDERED: NS 1,000 ML IV SCH (14:20)
[2024-11-21] MEDS ORDERED: Vancomycin HCL 2,000 MG in NS 520 ML IV ONE (14:25)
[2024-11-21 14:55] LABS: BASOPHILS PERCENT MAN 0 % (0-2); EOSINOPHILS PERCENT MAN 0 % (0-6); LYMPHOCYTES ABSOLUTE MAN 9.75 K/mm3 (0.84-5.20); LYMPHOCYTES PERCENT MAN 42 % (21-46); MONOCYTES ABSOLUTE MAN 0.46 K/mm3 (0.16-1.47); MONOCYTES PERCENT MAN 2 % (4-13); SEG NEUTROPHILS PERCENT MAN 56 % (41-73); TOTAL CELLS COUNTED 100
[2024-11-21 14:58] LABS: Albumin, Blood 3.8 g/dL (3.4-5.0); Albumin/Globulin Ratio 0.9 (0.8-1.8); Bilirubin, Total 0.7 mg/dL (0.1-1.0); Bun/Creatinine Ratio 15.5 (12.0-20.0); Calcium, Blood 10.1 mg/dL (8.5-10.1); Creatinine, Blood 1.03 mg/dL (0.60-1.20); Globulin, Blood 4.1 g/dL (2.2-4.0); Potassium, Blood 4.3 mmol/L (3.5-5.5); Total Protein, Blood 7.9 g/dL (6.4-8.2)
[2024-11-21] MEDS ORDERED: Ketorolac Tromethamine 15mg Vial IV ONE (15:20)
[2024-11-21] MEDS ORDERED: Metoprolol Tartrate 1 MG/ML 5 ML VIAL IV ONE (16:20)
[2024-11-21] MEDS ORDERED: FLU VACC TS2024-25(6MOS UP)/PF 45 MCG/0.5 ML SYRINGE IM SCH (16:40)
[2024-11-21] MEDS ORDERED: Metoprolol Tartrate 25 MG Tab PO SCH (17:00)
[2024-11-21 18:20] VITALS: BP 129/78
[2024-11-21 19:27] VITALS: BP 123/72
[2024-11-21] MEDS ORDERED: Insulin Human Lispro 100 Units/ML 3ML Syringe SC SCH (21:00)
[2024-11-21] MEDS ORDERED: Insulin Glargine-Yfgn 100 Unit/mL 3 ML SYR SC SCH (21:00)
[2024-11-22 03:50] VITALS: BP 93/67
[2024-11-22 05:27] LABS: Hematocrit 36.7 % (37.0-53.0); Hemoglobin 12.1 g/dL (13.5-17.5); Mean Corpuscular HGB 31.6 pg (26.0-34.0); Mean Corpuscular Volume 96 fL (80-100); Platelet Count 139 K/mm3 (150-400); RDW Coefficient Variation 14.7 % (11.7-14.2); RDW Standard Deviation 51.8 fL (35.1-46.3); Red Blood Cell Count 3.83 M/mm3 (4.30-5.90); White Blood Cell Count 17.15 K/mm3 (4.00-11.30)
[2024-11-22 06:11] LABS: Albumin/Globulin Ratio 0.9 (0.8-1.8); Bilirubin, Total 0.5 mg/dL (0.1-1.0); Bun/Creatinine Ratio 19.7 (12.0-20.0); Calcium, Blood 9.1 mg/dL (8.5-10.1); Creatinine, Blood 1.22 mg/dL (0.60-1.20); Globulin, Blood 3.4 g/dL (2.2-4.0); Potassium, Blood 4.2 mmol/L (3.5-5.5); Total Protein, Blood 6.4 g/dL (6.4-8.2)
--- NOTE | 2024-11-22 06:41 | NUR ---
NEW ER ADMIT JUST BEFORE SHIFT CHANGE, A&O, INDEP IN ROOM, REFUSED TELEMETERY MONITORING, MD NOTIFIED AND REFUSAL FOR SIGNED AND IN CHART, SLEPT T/O THE NIGHT W/CPAP, DENIED PAIN THIS SHIFT, SLEEPING AT THIS TIME, CALL LIGHT IN REACH.
[2024-11-22 07:12] VITALS: BP 113/70
[2024-11-22 07:28] LABS: BAND PERCENT MAN 15 % (0-8); BASOPHILS PERCENT MAN 0 % (0-2); EOSINOPHILS PERCENT MAN 0 % (0-6); LYMPHOCYTES ABSOLUTE MAN 5.65 K/mm3 (0.84-5.20); LYMPHOCYTES PERCENT MAN 33 % (21-46); MONOCYTES PERCENT MAN 7 % (4-13); MYELOCYTE ABSOLUTE MAN 0.17 K/mm3 (0.00-0.00); MYELOCYTE PERCENT MAN 1 % (0-0); NEUTROPHILS ABSOLUTE MAN 10.11 K/mm3 (1.96-9.15); SEG NEUTROPHILS PERCENT MAN 44 % (41-73); TOTAL CELLS COUNTED 100
[2024-11-22] MEDS ORDERED: OxyCODONE HCL 5 MG TAB PO PRN (07:55)
[2024-11-22] MEDS ORDERED: Atorvastatin 10 MG Tab PO SCH (09:00)
[2024-11-22] MEDS ORDERED: Allopurinol 300 MG Tab PO SCH (09:00)
[2024-11-22] MEDS ORDERED: Lisinopril 20 MG Tab PO SCH (09:00)
[2024-11-22] MEDS ORDERED: Vancomycin HCL 1,750 MG in NS 500 ML IV ONE (10:20)
[2024-11-22] MEDS ORDERED: PIOG45 PO (11:18)
[2024-11-22] MEDS ORDERED: LISI20 PO (11:19)
[2024-11-22] MEDS ORDERED: METF500 PO (11:19)
[2024-11-22] MEDS ORDERED: ALBU90OI INH (11:19)
[2024-11-22] MEDS ORDERED: Voltaren100 GM TOP (11:19)
[2024-11-22 15:29] VITALS: BP 95/59
[2024-11-22] MEDS ORDERED: Rivaroxaban 10 MG Tab PO SCH (17:00)
[2024-11-22 19:28] VITALS: BP 111/64
[2024-11-22] MEDS ORDERED: NS 250 ML IV PRN (22:35)
[2024-11-22] MEDS ORDERED: Vancomycin HCL 1,250 MG in NS 250 ML IV SCH (23:00)
[2024-11-23 04:54] VITALS: BP 102/53
[2024-11-23 06:06] LABS: BASOPHILS ABSOLUTE AUTO 0.05 K/mm3 (0.00-0.23); BASOPHILS PERCENT AUTO 0 % (0-2); EOSINOPHILS ABSOLUTE AUTO 0.49 K/mm3 (0.00-0.68); EOSINOPHILS PERCENT AUTO 3 % (0-6); Hematocrit 35.2 % (37.0-53.0); Hemoglobin 11.6 g/dL (13.5-17.5); IMMATURE GRAN ABSOLUTE AUTO 0.07 K/mm3 (0.00-0.10); IMMATURE GRAN PERCENT AUTO 0 % (0-1); LYMPHOCYTES ABSOLUTE AUTO 7.66 K/mm3 (0.84-5.20); LYMPHOCYTES PERCENT AUTO 49 % (21-46); MONOCYTES ABSOLUTE AUTO 1.07 K/mm3 (0.16-1.47); MONOCYTES PERCENT AUTO 7 % (4-13); Mean Corpuscular HGB 31.7 pg (26.0-34.0); Mean Corpuscular Volume 96 fL (80-100); Mean Platelet Volume 11.6 fL (9.1-12.4); NEUTROPHILS ABSOLUTE AUTO 6.43 K/mm3 (1.96-9.15); NEUTROPHILS PERCENT AUTO 41 % (41-73); Platelet Count 142 K/mm3 (150-400); RDW Coefficient Variation 14.7 % (11.7-14.2); RDW Standard Deviation 51.9 fL (35.1-46.3); Red Blood Cell Count 3.66 M/mm3 (4.30-5.90); White Blood Cell Count 15.77 K/mm3 (4.00-11.30)
[2024-11-23 06:45] LABS: Albumin, Blood 2.9 g/dL (3.4-5.0); Albumin/Globulin Ratio 0.8 (0.8-1.8); Bilirubin, Total 0.4 mg/dL (0.1-1.0); Bun/Creatinine Ratio 25.4 (12.0-20.0); Calcium, Blood 9.2 mg/dL (8.5-10.1); Creatinine, Blood 1.42 mg/dL (0.60-1.20); Globulin, Blood 3.6 g/dL (2.2-4.0); Potassium, Blood 4.2 mmol/L (3.5-5.5); Total Protein, Blood 6.5 g/dL (6.4-8.2)
[2024-11-23 07:47] VITALS: BP 124/80
[2024-11-23] MEDS ORDERED: CeFAZolin Sodium 2,000 MG in NS 100 ML IV SCH (09:57)
[2024-11-23 13:11] LABS: Source, Urine Clean Catch
[2024-11-23 13:21] LABS: Appearance, Urine Clear (Clear); Bilirubin, Urine Neg (Neg); Blood, Urine 1+ (Neg); Color, Urine Yellow (P-Yellow); Glucose Qualitative, Urine Neg (Neg); Ketones, Urine Neg (Neg); Leukocyte Esterase, Urine Neg (Neg); Nitrite, Urine Neg (Neg); Protein, Urine Neg (Neg); Specific Gravity, Urine 1.015 (1.003-1.022); Urobilinogen, Urine NORM (Normal)
[2024-11-23 13:30] LABS: Bacteria Not Seen /hpf; Red Blood Cells, Urine 0-2 /hpf (0-2); Squamous Epithelial Cells Not Seen /hpf (Few); White Blood Cells, Urine 0-2 /hpf (0-5)
[2024-11-23 15:12] VITALS: BP 134/82
--- NOTE | 2024-11-23 17:57 | NUR ---
SHIFT SUMMARY MR DSOUZA IS OX4. UP INDEPENDENTLY WITH STEADY GAIT, AMBULATING IN THE HALLS, C/O LOWER BACK PAIN HELPED WITH OXY AND MOBILIZATION. LLE CELULITIS WITHIN MARKED BOUNDARIES. ON IV ABX. AT BEDSIDE MUCH OF THE SHIFT.
[2024-11-23 20:39] VITALS: BP 107/62
[2024-11-23] MEDS ORDERED: NS 1,000 ML IV SCH (21:10)
[2024-11-24 04:57] VITALS: BP 135/96
[2024-11-24 05:11] LABS: Hematocrit 34.5 % (37.0-53.0); Hemoglobin 11.2 g/dL (13.5-17.5); Mean Corpuscular HGB 31.6 pg (26.0-34.0); Mean Corpuscular HGB Conc 32.5 g/dL (31.5-36.5); Mean Corpuscular Volume 98 fL (80-100); Mean Platelet Volume 11.6 fL (9.1-12.4); Platelet Count 163 K/mm3 (150-400); RDW Coefficient Variation 14.5 % (11.7-14.2); RDW Standard Deviation 52.4 fL (35.1-46.3); Red Blood Cell Count 3.54 M/mm3 (4.30-5.90)
[2024-11-24 05:53] LABS: Albumin, Blood 2.8 g/dL (3.4-5.0); Albumin/Globulin Ratio 0.8 (0.8-1.8); Bilirubin, Total 0.2 mg/dL (0.1-1.0); Calcium, Blood 8.8 mg/dL (8.5-10.1); Creatinine, Blood 1.27 mg/dL (0.60-1.20); Globulin, Blood 3.3 g/dL (2.2-4.0); Potassium, Blood 4.5 mmol/L (3.5-5.5); Total Protein, Blood 6.1 g/dL (6.4-8.2)
--- NOTE | 2024-11-24 06:19 | NUR ---
SHIFT SUMMARY PT A&Ox4. INDEPENDENT IN ROOM. IV ABX ADMINISTERED PER EMAR. INFUSING NS @ 125ml/hr, HOWEVER AT AROUND 0500 PT VERBALIZED FRUSTRATION WITH FLUIDS TAKING SO LONG TO INFUSE. PT IRRITABLE AND STATED HE DID NOT WANT FLUIDS GOING CONTINIOUSLY DESPITE EDUCATION, SO NS PUT ON DELAY. NO C/O PAIN. CPAP USED AT NIGHT. VSS. BED IN LOWEST POSITION AND CALL LIGHT IN REACH.
[2024-11-24 06:45] LABS: BAND PERCENT MAN 1 % (0-8); BASOPHILS ABSOLUTE MAN 0.14 K/mm3 (0.00-0.23); BASOPHILS PERCENT MAN 1 % (0-2); EOSINOPHILS ABSOLUTE MAN 1.13 K/mm3 (0.00-0.68); EOSINOPHILS PERCENT MAN 8 % (0-6); LYMPHOCYTES % ATYPICAL MANUAL 1 % (0-0); LYMPHOCYTES PERCENT MAN 49 % (21-46); MONOCYTES ABSOLUTE MAN 1.13 K/mm3 (0.16-1.47); MONOCYTES PERCENT MAN 8 % (4-13); NEUTROPHILS ABSOLUTE MAN 4.68 K/mm3 (1.96-9.15); SEG NEUTROPHILS PERCENT MAN 32 % (41-73); TOTAL CELLS COUNTED 100
[2024-11-24 07:54] VITALS: BP 118/75
--- NOTE | 2024-11-24 11:50 | NUR ---
RN NOTE MR CASTRO THIS MORNING ADMITTED TO BEING A SMOKER. HE WAS REMINDED OF THE NON SMOKING POLICY AND REMINDED THAT PATIENTS/VISITORS ARE NOT ALLOWED TO HAVE ANY IGNITION SOURCE HERE IN THE HOSPITAL. HE VERBALISED UNDERSTANDING AND GAVE ME HIS PETROL TANKER DRIVER WHICH WAS LOCKED IN THE MEDICATION DRAWER. YESTERDAY HE TOLD ME THAT HE DOES NOT SMOKE AND HAS NOT SMOKED FOR YEARS. HE ALLOWED ME TO REHOOK UP HIS IVF AT 0730HRS. HE WAS EDUCATED ON REASONS FOR IVF. AT 1050HRS MR CASTRO'S ARRIVED. HE TOLD ME HE WANTED TO BE DISCONNECTED FROM THE IVF TO GO OUTSIDE TO SMOKE. HE AND HIS WERE REMINDED OF THE NO SMOKING POLICY BUT HE LEFT THE UNIT. CHARGE NURSE JOSEPH NOTIFIED. DR RAGLAND NOTIFIED. CHUCKIE NURSE SUPERVISER CALLED AND NOTIFIED. ON PT'S RETURN HE WAS GIVEN A COPY OF THE NON SMOKING POLICY AND INFORMED THAT IF HE LEAVES THE HOSPITAL OR GOES OUTSIDE TO SMOKE HE WILL BE CONSIDERED LEAVING AGAINST MEDICAL ADVISE. NICOTENE REPLACEMENT WAS OFFERED THIS MORNING BUT PT DECLINED. AFTER BEING GIVEN A COPY OF THE POLICY AND VERBALISING UNDERSTANDING HE SAID THAT NICOTENE GUM WORKS FOR HIM WHILE HE'S WORKING AND REQUESTED THAT. HIS GAVE ME HER PETROL TANKER DRIVER AND IT WAS LOCKED IN THE MEDICATION DRAWER. DR RAGLAND CALLED TO UPDATE AND REQUEST NICOTENE GUM. HE IS PUTTING IN ORDERS. PT ALLOWED ME TO RESTART HIM ON MAINTAINANCE IVF.
[2024-11-24] MEDS ORDERED: Nicotine Polacrilex 2 MG Gum PO PRN (11:55)
--- NOTE | 2024-11-24 15:08 | NUR ---
SHIFT SUMMARY MR CASTRO C/O CHRONIC LOWER BACK PAIN, MINIMAL LEG PAIN. LEFT LEG RED WITHIN PEN MARKED BOUNDARIES. IVF INFUSING CURRENTLY AND PT HAS AGREED TO CONTINUE WITH IVF AND IV ABX. GIVEN NICOTENE GUM AND PT HAS AGREED TO STAY IN THE HOSPITAL OVERNIGHT BUT HAS SAID THAT HE IS EAGER TO LEAVE SOON HE CAN. NO NEW CONCERNS VOICED. RESTING IN BED, BED LOW, CALL LIGHT IN REACH.
[2024-11-24 15:12] VITALS: BP 145/87
[2024-11-24 20:11] VITALS: BP 153/84
--- NOTE | 2024-11-25 04:11 | NUR ---
SUMMARY: PT A/OX4, CALLS APPROPRIATELY TO SPECIFY NEEDS AND IS INDEPENDENT IN ROOM/HALLS. LLE CELLULITIS PERSISTS BUT REDNESS AND EDEMA REMAINS WITHIN DEMARCATED REGION. IV ABX RECEIVED AND CONTINUOUS IVF ARE INFUSING. HE TOLERATES CPAP AT HS W/CONT BIOX INTACT AND SPO2 WNL. NICORETTE GUM PROVIDED PRN PER PT REQUEST. NO ACUTE CHANGES, VSS/AFEBRILE. WCTM AND REPORT TO DAY RN.
[2024-11-25 05:26] LABS: Hematocrit 35.9 % (37.0-53.0); Hemoglobin 11.7 g/dL (13.5-17.5); Mean Corpuscular HGB 32.1 pg (26.0-34.0); Mean Corpuscular HGB Conc 32.6 g/dL (31.5-36.5); Mean Corpuscular Volume 98 fL (80-100); Mean Platelet Volume 11.7 fL (9.1-12.4); Platelet Count 178 K/mm3 (150-400); RDW Coefficient Variation 14.6 % (11.7-14.2); RDW Standard Deviation 52.4 fL (35.1-46.3); Red Blood Cell Count 3.65 M/mm3 (4.30-5.90); White Blood Cell Count 15.07 K/mm3 (4.00-11.30)
[2024-11-25 05:51] LABS: Calcium, Blood 8.5 mg/dL (8.5-10.1); Creatinine, Blood 1.08 mg/dL (0.60-1.20); Potassium, Blood 4.6 mmol/L (3.5-5.5)
[2024-11-25 06:23] LABS: BAND PERCENT MAN 2 % (0-8); BASOPHILS PERCENT MAN 0 % (0-2); EOSINOPHILS PERCENT MAN 2 % (0-6); LYMPHOCYTES % ATYPICAL MANUAL 3 % (0-0); LYMPHOCYTES ABSOLUTE MAN 12.35 K/mm3 (0.84-5.20); LYMPHOCYTES PERCENT MAN 79 % (21-46); MONOCYTES PERCENT MAN 4 % (4-13); SEG NEUTROPHILS PERCENT MAN 10 % (41-73); TOTAL CELLS COUNTED 100
[2024-11-25 07:12] VITALS: BP 149/98
[2024-11-25] MEDS ORDERED: VISBIOME 112.51 EACH PO (15:36)
[2024-11-25] MEDS ORDERED: CEFTRIAXON1 GM/50 M1 IV (15:38)
--- NOTE | 2024-11-25 16:11 | NUR ---
DISCHARGE SUMMARY PT DISCHARGED TO HOME WITH ORDERS TO RETURN TO [facility] FOR ANTIBIOTIC INFUSIONS X7 DAYS. PT PROVIDED DISCHARGE PACKET WITH INSTUCTION TO ARRIVE AT [facility] @ 0830 AM ON 11/26/24 FOR FIRST INFUSION. PT VERBALIZED UNDERSTANDING. IV REMOVED BY CNA2, SITE APPEARS WNL. PT REFUSED WHEELCHAIR. PT AMBULATED SAFELY TO PRIVATE VEHICLE WITH SPOUSE AT SIDE, THIS RN ACCOMPANIED PT DOWN TO SECOND FLOOR PT ENTRANCE.
[2024-11-25] MEDS ORDERED: Lactobacil 2-S.Thermo-Bifido 1 1 Cap PO SCH (21:00)
== END 2024-11-25 16:09 | disposition home or self-care (01) | DRG 872 ==
LOC: ER 13:22 → ERHOLD 16:36 → MEDS 16:36
PROVIDERS: Student in an Organized Health Care Education/Training Program; ADMIT Internal Medicine
DX: A41.9 Sepsis, unspecified organism (principal); L03.116 Cellulitis of left lower limb; N17.9 Acute kidney failure, unspecified; I48.91 Unspecified atrial fibrillation; I12.9 Hypertensive chronic kidney disease with stage 1 through stage 4 chronic kidney disease, or unspecified chronic kidney disease; E11.22 Type 2 diabetes mellitus with diabetic chronic kidney disease; N18.30 Chronic kidney disease, stage 3 unspecified; E78.5 Hyperlipidemia, unspecified; G47.33 Obstructive sleep apnea (adult) (pediatric); M10.9 Gout, unspecified; D63.1 Anemia in chronic kidney disease; G89.29 Other chronic pain; M54.9 Dorsalgia, unspecified; F17.210 Nicotine dependence, cigarettes, uncomplicated; R59.0 Localized enlarged lymph nodes; Z79.01 Long term (current) use of anticoagulants; Z79.4 Long term (current) use of insulin; Z79.899 Other long term (current) drug therapy; Z98.890 Other specified postprocedural states
CPT/HCPCS: 36415; 74177; 80048; 80053; 81001; 82570; 82947; 83605; 84300; 85025; 87040; 93005; 93010; 94660; 94762; 96374; 96375; 99285-25; A9270; J0690; J1815; J1885; J3370; J7030; J7040; J7050; Q9967

== ENCOUNTER 2024-11-26 00:55 | Day surgery (SDC) | payer OTHER ==
[~2024-11-26 00:55] MED LIST changes: +ALBU90OI INH; +CEFTRIAXON1 GM/50 M1 IV; +METF500 PO; +PIOG45 PO; +Voltaren100 GM TOP
[2024-11-26] MEDS ORDERED: CefTRIAXone Sodium 2,000 MG in NS 100 ML IV SCH (06:00)
[2024-11-26 08:44] VITALS: BP 134/80
== END 2024-11-26 08:59 | disposition home or self-care (01) ==
LOC: ATC 00:55
DX: L03.116 Cellulitis of left lower limb (principal); I10 Essential (primary) hypertension; E78.5 Hyperlipidemia, unspecified; E11.9 Type 2 diabetes mellitus without complications; I48.91 Unspecified atrial fibrillation; G47.33 Obstructive sleep apnea (adult) (pediatric); M10.9 Gout, unspecified; Z79.01 Long term (current) use of anticoagulants; Z79.4 Long term (current) use of insulin; Z79.899 Other long term (current) drug therapy
CPT/HCPCS: 96365; J0696

== ENCOUNTER 2024-11-27 01:54 | Day surgery (SDC) | payer OTHER ==
[~2024-11-27 01:54] MED LIST changes: +CefTRIAXone Sodium 2,000 MG in NS 100 ML IV SCH
[2024-11-27 07:36] VITALS: BP 137/77
== END 2024-11-27 08:03 | disposition home or self-care (01) ==
LOC: ATC 01:54
DX: L03.116 Cellulitis of left lower limb (principal); I48.91 Unspecified atrial fibrillation; E11.9 Type 2 diabetes mellitus without complications; I10 Essential (primary) hypertension; E78.5 Hyperlipidemia, unspecified; G47.33 Obstructive sleep apnea (adult) (pediatric); M10.9 Gout, unspecified; Z79.01 Long term (current) use of anticoagulants; Z79.4 Long term (current) use of insulin; Z79.899 Other long term (current) drug therapy
CPT/HCPCS: 96365; J0696

== ENCOUNTER 2024-11-28 00:42 | Day surgery (SDC) | payer OTHER ==
[~2024-11-28 00:42] MED LIST changes: -CefTRIAXone Sodium 2,000 MG in NS 100 ML IV SCH
[2024-11-28] MEDS ORDERED: CefTRIAXone Sodium 2,000 MG in NS 100 ML IV SCH (07:00)
[2024-11-28 07:38] VITALS: BP 147/75
== END 2024-11-28 08:08 | disposition home or self-care (01) ==
LOC: ATC 00:42
DX: L03.116 Cellulitis of left lower limb (principal); I48.91 Unspecified atrial fibrillation; E11.9 Type 2 diabetes mellitus without complications; I10 Essential (primary) hypertension; E78.5 Hyperlipidemia, unspecified; G47.33 Obstructive sleep apnea (adult) (pediatric); M10.9 Gout, unspecified; Z79.01 Long term (current) use of anticoagulants; Z79.4 Long term (current) use of insulin; Z79.899 Other long term (current) drug therapy
CPT/HCPCS: 96365; J0696

== ENCOUNTER 2024-11-29 03:16 | Day surgery (SDC) | payer OTHER ==
[~2024-11-29 03:16] MED LIST changes: +CefTRIAXone Sodium 2,000 MG in NS 100 ML IV SCH
[2024-11-29 07:41] VITALS: BP 139/83
== END 2024-11-29 08:01 | disposition home or self-care (01) ==
LOC: ATC 03:16
DX: L03.116 Cellulitis of left lower limb (principal); I10 Essential (primary) hypertension; E11.9 Type 2 diabetes mellitus without complications; E78.5 Hyperlipidemia, unspecified; G47.33 Obstructive sleep apnea (adult) (pediatric); I48.91 Unspecified atrial fibrillation; M10.9 Gout, unspecified; Z79.01 Long term (current) use of anticoagulants; Z79.4 Long term (current) use of insulin; Z79.899 Other long term (current) drug therapy
CPT/HCPCS: 96365; J0696

== ENCOUNTER 2024-11-30 02:58 | Day surgery (SDC) | payer OTHER ==
[~2024-11-30 02:58] MED LIST changes: -CefTRIAXone Sodium 2,000 MG in NS 100 ML IV SCH
[2024-11-30] MEDS ORDERED: CefTRIAXone Sodium 2,000 MG in NS 100 ML IV SCH (06:00)
[2024-11-30 07:48] VITALS: BP 139/76
== END 2024-11-30 08:10 | disposition home or self-care (01) ==
LOC: ATC 02:58
DX: L03.116 Cellulitis of left lower limb (principal); I48.91 Unspecified atrial fibrillation; I10 Essential (primary) hypertension; E11.9 Type 2 diabetes mellitus without complications; E78.5 Hyperlipidemia, unspecified; G47.33 Obstructive sleep apnea (adult) (pediatric); Z79.01 Long term (current) use of anticoagulants; Z79.4 Long term (current) use of insulin; Z79.899 Other long term (current) drug therapy
CPT/HCPCS: 96365; J0696

== ENCOUNTER 2024-12-01 07:43 | Day surgery (SDC) | payer OTHER ==
[~2024-12-01 07:43] MED LIST changes: +CefTRIAXone Sodium 2,000 MG in NS 100 ML IV SCH
[2024-12-01 08:02] VITALS: BP 136/77
== END 2024-12-01 08:32 | disposition home or self-care (01) ==
LOC: ATC 07:43
DX: L03.116 Cellulitis of left lower limb (principal); I48.91 Unspecified atrial fibrillation; E11.9 Type 2 diabetes mellitus without complications; I10 Essential (primary) hypertension; E78.5 Hyperlipidemia, unspecified; G47.33 Obstructive sleep apnea (adult) (pediatric); M10.9 Gout, unspecified; F17.200 Nicotine dependence, unspecified, uncomplicated; Z79.01 Long term (current) use of anticoagulants; Z79.4 Long term (current) use of insulin; Z79.899 Other long term (current) drug therapy
CPT/HCPCS: 96365; J0696

== ENCOUNTER 2024-12-02 02:19 | Day surgery (SDC) | payer OTHER ==
[2024-12-02 11:37] VITALS: BP 133/78
--- NOTE | 2024-12-16 11:08 | NUR ---
ROCEPHIN IV START: 1137 STOP TIME: 1205
== END 2024-12-02 12:10 | disposition home or self-care (01) ==
LOC: ATC 02:19
DX: L03.116 Cellulitis of left lower limb (principal); I10 Essential (primary) hypertension; I48.91 Unspecified atrial fibrillation; E78.5 Hyperlipidemia, unspecified; E11.9 Type 2 diabetes mellitus without complications; G47.33 Obstructive sleep apnea (adult) (pediatric); M10.9 Gout, unspecified; F17.200 Nicotine dependence, unspecified, uncomplicated; Z79.01 Long term (current) use of anticoagulants; Z79.4 Long term (current) use of insulin; Z79.899 Other long term (current) drug therapy
CPT/HCPCS: 96365; J0696

== ENCOUNTER 2025-07-16 08:23 | Emergency (ER) | payer OTHER ==
[~2025-07-16] VITALS: Ht 180.3 cm; Wt 127.0 kg
[~2025-07-16 08:23] MED LIST changes: -CefTRIAXone Sodium 2,000 MG in NS 100 ML IV SCH
[2025-07-16 10:50] VITALS: BP 130/66
== END 2025-07-16 11:30 | disposition home or self-care (01) ==
LOC: ER 08:23
DX: I83.892 Varicose veins of left lower extremity with other complications (principal); I10 Essential (primary) hypertension; E11.9 Type 2 diabetes mellitus without complications; F17.200 Nicotine dependence, unspecified, uncomplicated; Z79.4 Long term (current) use of insulin; Z79.84 Long term (current) use of oral hypoglycemic drugs; Z79.899 Other long term (current) drug therapy
CPT/HCPCS: 99283; A9270

== ENCOUNTER 2025-08-22 13:16 | Inpatient (IN) | payer OTHER ==
[~2025-08-22] VITALS: Ht 180.3 cm; Wt 122.3 kg
[2025-08-22 14:15] LABS: Hematocrit 39.3 % (37.0-53.0); Hemoglobin 12.6 g/dL (13.5-17.5); Mean Corpuscular HGB Conc 32.1 g/dL (31.5-36.5); Mean Corpuscular Volume 97 fL (80-100); NRBC ABSOLUTE 0.00 K/mm3 (0.00-0.02); NRBC Auto 0.0 /100 WBC (0.0-0.2); Platelet Count 172 K/mm3 (150-400); RDW Coefficient Variation 15.1 % (11.7-14.2); RDW Standard Deviation 54.3 fL (35.1-46.3)
[2025-08-22 14:29] LABS: Alanine Aminotransfer (ALT/SGP 31.0 U/L (12-78); Albumin, Blood 3.9 g/dL (3.4-5.0); Albumin/Globulin Ratio 1.0 (0.8-1.8); Anion Gap 10.0 mmol/L (3-11); Aspartate Aminotrans (AST/SGOT 33.0 U/L (12-37); Bilirubin, Total 0.6 mg/dL (0.1-1.0); Blood Urea Nitrogen 40.0 mg/dL (8-24); CO2, Blood 23.0 mmol/L (21-32); Calcium, Blood 9.8 mg/dL (8.5-10.1); Chloride, Blood 107.0 mmol/L (98-108); Creatinine, Blood 2.51 mg/dL (0.60-1.20); Globulin, Blood 4.0 g/dL (2.2-4.0); Glucose, Blood 131.0 mg/dL (70-99); Potassium, Blood 4.5 mmol/L (3.5-5.5); Sodium, Blood 135.0 mmol/L (136-145); Total Protein, Blood 7.9 g/dL (6.4-8.2)
[2025-08-22 15:02] LABS: BASOPHILS ABSOLUTE MAN 0.00 K/mm3 (0.00-0.23); BASOPHILS PERCENT MAN 0 % (0-2); EOSINOPHILS ABSOLUTE MAN 0.00 K/mm3 (0.00-0.68); EOSINOPHILS PERCENT MAN 0 % (0-6); LYMPHOCYTES ABSOLUTE MAN 9.89 K/mm3 (0.84-5.20); LYMPHOCYTES PERCENT MAN 45 % (21-46); MONOCYTES ABSOLUTE MAN 1.31 K/mm3 (0.16-1.47); MONOCYTES PERCENT MAN 6 % (4-13); NEUTROPHILS ABSOLUTE MAN 10.77 K/mm3 (1.96-9.15); SEG NEUTROPHILS PERCENT MAN 49 % (41-73)
[2025-08-22] MEDS ORDERED: Vancomycin (Pharmacy Consult) IV PRN (15:25)
[2025-08-22] MEDS ORDERED: Cefepime HCl 1,000 MG in NS 100 ML IV ONE ×2 (15:25→18:05)
[2025-08-22] MEDS ORDERED: NS 1,000 ML IV SCH (15:25)
[2025-08-22] MEDS ORDERED: FLU VACC TS2025-26(6MOS UP)/PF 45 MCG/0.5 ML SYRINGE IM SCH (17:50)
[2025-08-22] MEDS ORDERED: Vancomycin (Pharmacy Consult) IV SCH (17:55)
[2025-08-22] MEDS ORDERED: NS 250 ML IV PRN (18:10)
[2025-08-22 19:51] VITALS: BP 103/71
[2025-08-22] MEDS ORDERED: Insulin Human Lispro 100 Units/ML 3ML Syringe SC SCH (21:00)
[2025-08-22] MEDS ORDERED: Insulin Glargine 100 Unit/ML 3 ML SYR SC SCH (21:00)
[2025-08-23 03:41] VITALS: BP 87/59
[2025-08-23 04:22] VITALS: BP 94/63
--- NOTE | 2025-08-23 04:39 | NUR ---
SHIFT SUMMARY PATIENT WAS ADMIT ON DAY SHIFT. PATIENT HAD NO ACUTE CHANGES. ALERT ORIENTED AND SBA TO BR. DENIES CHEST PAIN, SOB, AND N/V. SOFT BP'S WITH LAST 87/59 AND RECHECK AT 94/63. ADMIT BP 103/71. LOW GRADE TEMP 99.1. CBG 143. PIV INTACT. IV ABX INFUSED. COOPERATIVE WITH CARE. CALL LIGHT IN REACH. BED IN LOWEST POSITION. WILL CONTINUE TO MONITOR UNTIL DAY SHIFT NURSE ASSUMES CARE.
[2025-08-23 04:59] LABS: Hematocrit 34.7 % (37.0-53.0); Hemoglobin 11.2 g/dL (13.5-17.5); Mean Corpuscular HGB Conc 32.3 g/dL (31.5-36.5); Mean Corpuscular Volume 97 fL (80-100); NRBC ABSOLUTE 0.00 K/mm3 (0.00-0.02); NRBC Auto 0.0 /100 WBC (0.0-0.2); Platelet Count 158 K/mm3 (150-400); RDW Coefficient Variation 15.0 % (11.7-14.2); RDW Standard Deviation 53.6 fL (35.1-46.3)
[2025-08-23] MEDS ORDERED: Cefepime HCl 2,000 MG in NS 100 ML IV SCH (05:00)
[2025-08-23 05:23] LABS: Alanine Aminotransfer (ALT/SGP 30.0 U/L (12-78); Albumin, Blood 2.9 g/dL (3.4-5.0); Albumin/Globulin Ratio 0.8 (0.8-1.8); Anion Gap 10.0 mmol/L (3-11); Aspartate Aminotrans (AST/SGOT 29.0 U/L (12-37); Bilirubin, Total 0.5 mg/dL (0.1-1.0); Blood Urea Nitrogen 51.0 mg/dL (8-24); CO2, Blood 23.0 mmol/L (21-32); Calcium, Blood 8.9 mg/dL (8.5-10.1); Chloride, Blood 111.0 mmol/L (98-108); Creatinine, Blood 1.88 mg/dL (0.60-1.20); Globulin, Blood 3.7 g/dL (2.2-4.0); Glucose, Blood 152.0 mg/dL (70-99); Magnesium, Blood 2.2 mg/dL (1.6-2.4); Potassium, Blood 4.8 mmol/L (3.5-5.5); Sodium, Blood 139.0 mmol/L (136-145); Total Protein, Blood 6.6 g/dL (6.4-8.2)
[2025-08-23 06:01] LABS: BAND PERCENT MAN 8 % (0-8); BASOPHILS ABSOLUTE MAN 0.00 K/mm3 (0.00-0.23); BASOPHILS PERCENT MAN 0 % (0-2); EOSINOPHILS ABSOLUTE MAN 0.00 K/mm3 (0.00-0.68); EOSINOPHILS PERCENT MAN 0 % (0-6); LYMPHOCYTES ABSOLUTE MAN 6.98 K/mm3 (0.84-5.20); LYMPHOCYTES PERCENT MAN 43 % (21-46); MONOCYTES ABSOLUTE MAN 2.11 K/mm3 (0.16-1.47); MONOCYTES PERCENT MAN 13 % (4-13); NEUTROPHILS ABSOLUTE MAN 7.14 K/mm3 (1.96-9.15); SEG NEUTROPHILS PERCENT MAN 36 % (41-73)
[2025-08-23 07:36] VITALS: BP 98/82
[2025-08-23] MEDS ORDERED: Enoxaparin 40 MG/0.4 ML SYR SC SCH (09:00)
[2025-08-23] MEDS ORDERED: Insulin Glargine 100 Unit/ML 3 ML SYR SC SCH (09:00)
--- NOTE | 2025-08-23 09:28 | NUR ---
pt up ad vignesh in room, gait noted to be steady, a/ox4, pleasant and coopertive with care, follows commands well, denies pain at this time, lungs are clear but dim t/o, resp even and unlabored, no cough noted, on r/a, hrirr, hx afib, piv to lfa site is clear and patent, btx4, abd flat soft nontender, voids without diff, skin has dk rd rle with some swelling, no open areas noted, skin is otherwise c/d/i, mimi yap, call light in reach.
[2025-08-23 10:51] LABS: Vancomycin, Random 10.6 ug/mL
[2025-08-23 16:03] VITALS: BP 107/71
--- NOTE | 2025-08-23 18:08 | NUR ---
pt resting in bed with cpap on, at bedside, no acute changes this shift, call light in reach.
[2025-08-23] MEDS ORDERED: Albuterol HFA200 ACT/6.7 GM INH INH PRN (19:25)
[2025-08-23 20:56] VITALS: BP 133/84
--- NOTE | 2025-08-24 04:18 | NUR ---
SHIFT SUMMARY PATIENT HAD NO ACUTE CHANGES. ALERT ORIENTED AND SBA TO BR. DENIES CHEST PAIN, SOB, AND N/V. VSS/AFEBRILE. CBG 216. USES HOME CPAP. PIV INTACT. IV ABX INFUSED. SLEPT MOST OF THE SHIFT. CALL LIGHT IN REACH. BED IN LOWEST POSITION. WILL CONTINUE TO MONITOR UNTIL DAY SHIFT NURSE ASSUMES CARE.
[2025-08-24 04:31] VITALS: BP 102/60
[2025-08-24 07:55] VITALS: BP 117/79
[2025-08-24] MEDS ORDERED: MetFORMIN HCl 500 mg PO SCH (08:00)
[2025-08-24 15:41] VITALS: BP 112/78
--- NOTE | 2025-08-24 17:18 | NUR ---
IMMANUEL IS A&O X4, ABLE TO MAKE NEEDS KNOWN. HIS MEDICATIONS HAVE BEEN RENALLY ADJUSTED, MONITORING KIDNEY FUNCTION. CELLULITIS TO RLE. PT IS INDEPENDENT IN ROOM. GOOD APPETITE, SHOWERED TODAY. RECEIVING IV ABX. ROOM AIR. FREQUENT VISITORS WITH AND GRAND-DAUGHTERS. DENIES PAIN IN RLE.
[2025-08-24 20:26] VITALS: BP 122/71
--- NOTE | 2025-08-25 04:07 | NUR ---
SHIFT SUMMARY PATIENT HAD NO ACUTE CHANGES. ALERT ORIENTED AND INDEPENDENT IN ROOM. DENIES CHEST PAIN, SOB, AND N/V. VSS/AFEBRILE. PIV INTACT. IV ABX INFUSED. CBG 167. USE HOME CPAP. SLEPT MOST OF THE SHIFT. CALL LIGHT IN REACH. BED IN LOWEST POSITION. WILL CONTINUE TO MONITOR UNTIL DAY SHIFT NURSE ASSUMES CARE.
[2025-08-25 04:49] VITALS: BP 138/74
[2025-08-25 05:07] LABS: Hematocrit 29.0 % (37.0-53.0); Hemoglobin 9.3 g/dL (13.5-17.5); Mean Corpuscular HGB Conc 32.1 g/dL (31.5-36.5); Mean Corpuscular Volume 98 fL (80-100); NRBC ABSOLUTE 0.00 K/mm3 (0.00-0.02); NRBC Auto 0.0 /100 WBC (0.0-0.2); Platelet Count 165 K/mm3 (150-400); RDW Coefficient Variation 15.3 % (11.7-14.2); RDW Standard Deviation 54.4 fL (35.1-46.3)
[2025-08-25 05:36] LABS: Alanine Aminotransfer (ALT/SGP 39.0 U/L (12-78); Albumin, Blood 2.6 g/dL (3.4-5.0); Albumin/Globulin Ratio 0.7 (0.8-1.8); Anion Gap 8.0 mmol/L (3-11); Aspartate Aminotrans (AST/SGOT 25.0 U/L (12-37); Bilirubin, Total 0.4 mg/dL (0.1-1.0); Blood Urea Nitrogen 36.0 mg/dL (8-24); CO2, Blood 22.0 mmol/L (21-32); Calcium, Blood 8.8 mg/dL (8.5-10.1); Chloride, Blood 113.0 mmol/L (98-108); Creatinine, Blood 1.23 mg/dL (0.60-1.20); Globulin, Blood 3.5 g/dL (2.2-4.0); Glucose, Blood 142.0 mg/dL (70-99); Potassium, Blood 5.0 mmol/L (3.5-5.5); Sodium, Blood 138.0 mmol/L (136-145); Total Protein, Blood 6.1 g/dL (6.4-8.2)
[2025-08-25 07:04] LABS: BASOPHILS ABSOLUTE MAN 0.00 K/mm3 (0.00-0.23); BASOPHILS PERCENT MAN 0 % (0-2); EOSINOPHILS ABSOLUTE MAN 0.64 K/mm3 (0.00-0.68); EOSINOPHILS PERCENT MAN 5 % (0-6); LYMPHOCYTES ABSOLUTE MAN 6.15 K/mm3 (0.84-5.20); LYMPHOCYTES PERCENT MAN 48 % (21-46); MONOCYTES ABSOLUTE MAN 0.76 K/mm3 (0.16-1.47); MONOCYTES PERCENT MAN 6 % (4-13); MYELOCYTE ABSOLUTE MAN 0.12 K/mm3 (0.00-0.00); MYELOCYTE PERCENT MAN 1 % (0-0); NEUTROPHILS ABSOLUTE MAN 5.13 K/mm3 (1.96-9.15); SEG NEUTROPHILS PERCENT MAN 40 % (41-73)
[2025-08-25 07:48] VITALS: BP 115/64
[2025-08-25] MEDS ORDERED: MetFORMIN HCl 500 mg PO SCH (08:04)
[2025-08-25 10:38] LABS: Vancomycin, Trough 14.8 ug/mL (5.0-10.0)
[2025-08-25] MEDS ORDERED: Cefepime HCl 2,000 MG in NS 100 ML IV SCH (13:00)
[2025-08-25 16:05] VITALS: BP 143/76
--- NOTE | 2025-08-25 16:58 | NUR ---
SHIFT SUMMARY PATIENT ALERT AND ORIENTED X4. PLEASANT AND RECEPTIVE DURING CARE AND MAKE NEEDS KNOWN. MEDICATION ADMINISTERED PER EMAR. DENIES PAIN, SOB, AND CP. NO ACUTE CHANGE DURING THIS SHIFT. VITAL SIGNS STABLE. SELF REPOSITION IN BED. BED LOCKED AND IN LOWEST POSITION., CALL LIGHT WITHIN REACH.
--- NOTE | 2025-08-25 17:39 | NUR ---
THIS SPECTRAL SCIENTIST HAS REVIEWED AND AGREES WITH ALL NOTES AND ASSESSMENTS BY HENRIQUE GIBSON.
[2025-08-25 19:45] VITALS: BP 105/73
--- NOTE | 2025-08-26 03:26 | NUR ---
SHIFT SUMMARY PT A&OX4. COOPERATIVE FOR CARES. ABLE TO MAKE NEEDS KNOWN. ON ROOM AIR, WEARS HOME CPAP AT NIGHT. INDEPENDENT IN ROOM. LFA PIV/SL. ACHS. SLEPT WELL THROUGHOUT THE NIGHT. VSS. CALL LIGHT IN REACH.
[2025-08-26 04:03] VITALS: BP 120/53
[2025-08-26 06:41] LABS: Hematocrit 33.1 % (37.0-53.0); Hemoglobin 10.4 g/dL (13.5-17.5); Mean Corpuscular HGB Conc 31.4 g/dL (31.5-36.5); Mean Corpuscular Volume 99 fL (80-100); NRBC ABSOLUTE 0.00 K/mm3 (0.00-0.02); NRBC Auto 0.0 /100 WBC (0.0-0.2); Platelet Count 210 K/mm3 (150-400); RDW Coefficient Variation 15.2 % (11.7-14.2); RDW Standard Deviation 54.7 fL (35.1-46.3)
[2025-08-26 07:02] LABS: Alanine Aminotransfer (ALT/SGP 40.0 U/L (12-78); Albumin, Blood 3.0 g/dL (3.4-5.0); Albumin/Globulin Ratio 0.8 (0.8-1.8); Anion Gap 9.0 mmol/L (3-11); Aspartate Aminotrans (AST/SGOT 23.0 U/L (12-37); Bilirubin, Total 0.4 mg/dL (0.1-1.0); Blood Urea Nitrogen 35.0 mg/dL (8-24); CO2, Blood 21.0 mmol/L (21-32); Calcium, Blood 9.1 mg/dL (8.5-10.1); Chloride, Blood 113.0 mmol/L (98-108); Creatinine, Blood 1.25 mg/dL (0.60-1.20); Globulin, Blood 3.7 g/dL (2.2-4.0); Glucose, Blood 122.0 mg/dL (70-99); Potassium, Blood 5.0 mmol/L (3.5-5.5); Sodium, Blood 138.0 mmol/L (136-145); Total Protein, Blood 6.7 g/dL (6.4-8.2)
[2025-08-26 07:31] VITALS: BP 117/69
[2025-08-26 08:13] LABS: BASOPHILS ABSOLUTE MAN 0.00 K/mm3 (0.00-0.23); BASOPHILS PERCENT MAN 0 % (0-2); EOSINOPHILS ABSOLUTE MAN 0.00 K/mm3 (0.00-0.68); EOSINOPHILS PERCENT MAN 0 % (0-6); LYMPHOCYTES ABSOLUTE MAN 13.40 K/mm3 (0.84-5.20); LYMPHOCYTES PERCENT MAN 66 % (21-46); MONOCYTES ABSOLUTE MAN 0.40 K/mm3 (0.16-1.47); MONOCYTES PERCENT MAN 2 % (4-13); MYELOCYTE ABSOLUTE MAN 0.40 K/mm3 (0.00-0.00); MYELOCYTE PERCENT MAN 2 % (0-0); NEUTROPHILS ABSOLUTE MAN 6.09 K/mm3 (1.96-9.15); SEG NEUTROPHILS PERCENT MAN 30 % (41-73)
[2025-08-26] MEDS ORDERED: FURO40 PO (16:18)
[2025-08-26] MEDS ORDERED: POTCHL20ER PO (16:18)
[2025-08-26] MEDS ORDERED: CEPH500 PO (16:18)
--- NOTE | 2025-08-26 16:19 | NUR ---
DISCHARGE NOTE PT D/C HOME AT 1500. PT AND PT'S PROVIDED W/ VERBAL AND WRITTEN INSTRUCTIONS AND REPORTED UNDERSTANDING. PT A&OX4, VSS, AMB IND, TOLERATING PO, VOIDING, AND DENIED PAIN, BELONGINGS WERE RETURNED AND PT ESCOURTED OUT BY HIS .
== END 2025-08-26 15:00 | disposition home or self-care (01) | DRG 872 ==
LOC: ER 13:16 → MEDS 13:17
PROVIDERS: Family Medicine; Student in an Organized Health Care Education/Training Program; ADMIT Internal Medicine
PROC: 3E03329 Introduction of Other Anti-infective into Peripheral Vein, Percutaneous Approach (ICD-10-PCS; principal; 2025-08-22)
PROC: 5A09357 Assistance with Respiratory Ventilation, Less than 24 Consecutive Hours, Continuous Positive Airway Pressure (ICD-10-PCS; 2025-08-23)
DX: A41.9 Sepsis, unspecified organism (principal); L03.115 Cellulitis of right lower limb; N17.9 Acute kidney failure, unspecified; C91.10 Chronic lymphocytic leukemia of B-cell type not having achieved remission; R60.0 Localized edema; E11.22 Type 2 diabetes mellitus with diabetic chronic kidney disease; I12.9 Hypertensive chronic kidney disease with stage 1 through stage 4 chronic kidney disease, or unspecified chronic kidney disease; M10.9 Gout, unspecified; E78.5 Hyperlipidemia, unspecified; I48.0 Paroxysmal atrial fibrillation; N18.30 Chronic kidney disease, stage 3 unspecified; M17.12 Unilateral primary osteoarthritis, left knee; Z79.4 Long term (current) use of insulin; Z79.84 Long term (current) use of oral hypoglycemic drugs; Z79.01 Long term (current) use of anticoagulants
CPT/HCPCS: 36415; 73590; 80053; 80202; 82947; 83605; 83735; 85025; 87040; 93926; 94760; 94762; 96365; 96367; 99284-25; A9270; G0378; J0692; J1650; J1815; J3373; J7030; J7040; J7050